=== PATIENT | male | born 1955 | race Caucasian/White ===

== ENCOUNTER → 2020-02-28 | Outpatient (CLI) | payer MEDICARE, OTHER ==
--- NOTE | 2020-02-28 16:15 | RADIOLOGY REPORT (SQ) ---
EXAM DESCRIPTION: ELBOW LEFT >2 VIEWS IMAGES COMPLETED DATE/TIME: 02/28/2020 4:02 pm REASON FOR STUDY: OLECRANON BURSITIS OF LEFT ELBOW M70.22 OLECRANON BURSITIS, LEFT ELBOW M25.562 P AIN IN LEFT KNEE COMPARISON: None. NUMBER OF VIEWS: Four view. TECHNIQUE: AP, lateral, and both oblique radiographic images acquired of the left elbow. LIMITATIONS: None. FINDINGS: MINERALIZATION: Normal. BONES: No acute fracture or dislocation. No worrisome bone lesions. Small enthesophyte of the olecran on. JOINT: No effusions. SOFT TISSUES: No soft tissue swelling. No foreign body. OTHER: No other significant finding. IMPRESSION: No acute findings. TECHNICAL DOCUMENTATION: JOB ID: [id number] 2010 [employer]- All Rights Reserved. Reading location - IP/workstation name: [email or web address]
--- NOTE | 2020-02-28 16:17 | RADIOLOGY REPORT (SQ) ---
EXAM DESCRIPTION: KNEE LEFT 3 VIEWS IMAGES COMPLETED DATE/TIME: 02/28/2020 4:02 pm REASON FOR STUDY: LEFT ANTERIOR KNEE PAIN M70.22 OLECRANON BURSITIS, LEFT ELBOW M25.562 PAIN IN LE FT KNEE COMPARISON: None. NUMBER OF VIEWS: Three views. TECHNIQUE: AP, lateral, and sunrise patella radiographic images acquired of the left knee. LIMITATIONS: None. FINDINGS: MINERALIZATION: Normal. BONES: No acute fracture or dislocation. No worrisome bone lesions. No significant osteophytes. JOINT: Joint space narrowing medial compartment. No effusion. No chondrocalcinosis. OTHER: No other significant finding. IMPRESSION: Mild osteoarthritic changes medial compartment. TECHNICAL DOCUMENTATION: JOB ID: [id number] 2010 [employer]- All Rights Reserved Reading location - IP/workstation name: [email or web address]
== END ==
LOC: OD 15:20
PROVIDERS: ATTEND Nurse Practitioner Family
DX: M70.22 Olecranon bursitis, left elbow (principal); M25.562 Pain in left knee